=== PATIENT | male | born 1945 | race Caucasian/White ===

== ENCOUNTER → 2018-09-19 | Outpatient (CLI) | payer MEDICARE ==
[2018-09-19 17:10] LABS: Appearance,BF Cloudy; Color,BF Red
[2018-09-19 18:09] LABS: Nucleated Cells, Body Fluid 12100 /uL; RBC, Body Fluid 127100 /uL
[2018-09-19 18:10] LABS: Mononuclear WBC,Body Fluid 17 %; Polynuclear WBC,Body Fluid 83 %; Total Cells Counted,Body Fluid 100
== END | disposition home or self-care (01) ==
LOC: LABWHC1 16:30
PROVIDERS: ATTEND Orthopaedic Surgery
DX: M25.562 Pain in left knee (principal); M17.12 Unilateral primary osteoarthritis, left knee; E11.9 Type 2 diabetes mellitus without complications; M00.862 Arthritis due to other bacteria, left knee
CPT/HCPCS: 87070; 87075; 87205; 89050; 89060

== ENCOUNTER 2024-04-04 08:31 | Inpatient (IN) | payer MEDICARE ==
--- NOTE | 2024-04-04 08:44 | ED ---
General Adult HPI - General Chief complaint: Fall Stated complaint: Fall Time Seen by Provider: 04/04/24 08:32 Source: patient, EMS, RN notes reviewed Mode of arrival: EMS Limitations: no limitations - History of Present Illness Initial comments: Patient is a 78-year-old male presenting to the emergency department with right hip discomfort. Discomfort is only with attempted ambulation and standing. No pain at this time. Patient did have a fall around 130 or 2 in the morning. Patient denies any head injury or loss of consciousness. No neck or back pain. Patient only has discomfort of the right hip only with standing up and ambulation. - Related Data Home Medications Medication Instructions Recorded Confirmed Enalapril [Vasotec] 5 mg PO DAILY 08/12/18 08/12/18 Folic Acid 1 mg PO DAILY 08/12/18 08/12/18 Levothyroxine Sodium [Synthroid] 88 mcg PO DAILY 08/12/18 08/12/18 Sertraline [Zoloft] 150 mg PO DAILY 08/12/18 08/12/18 Simvastatin [Zocor] 10 mg PO DAILY 08/12/18 08/12/18 metFORMIN HCL [Glucophage] 1,000 mg PO BID 08/12/18 08/12/18 metHOTREXate sodium [Methotrexate] 22.5 mg PO Q7D 08/12/18 08/12/18 Previous Rx's Medication Instructions Recorded Acetaminophen Tab [Tylenol] 650 mg PO Q6HR PRN tab 08/18/18 INSULIN ASPART (NovoLOG) [NovoLOG 0 unit SQ ACHS vial 08/18/18 (formulary)] Insulin Detemir (Levemir) [Levemir] 5 unit SQ HS syr 08/18/18 Multivitamins, Thera [Multivitamin] 1 tab PO DAILY #30 tablet 08/18/18 Thiamine [Vitamin B-1] 100 mg PO DAILY #30 tablet 08/18/18 ceFAZolin [Kefzol] 2 gm IVPB Q8HR #72 08/18/18 polyethylene glycoL 3350 [Miralax] 17 gm PO DAILY PRN powd.pack 08/18/18 Allergies Allergy/AdvReac Type Severity Reaction Status Date / Time No Known Allergies Allergy Verified 04/04/24 08:39 Review of Systems ROS Statement: Those systems with pertinent positive or pertinent negative responses have been documented in the HPI. ROS Other: All systems not noted in ROS Statement are negative. Constitutional: Denies: fever Eyes: Denies: eye pain ENT: Denies: ear pain Respiratory: Denies: cough, dyspnea Cardiovascular: Denies: chest pain Musculoskeletal: Denies: back pain Neurological: Reports: other (Chronic weakness right arm from previous stroke). Denies: headache Past Medical History Past Medical History: Cancer, CVA/TIA, Diabetes Mellitus, Osteoarthritis (OA), Rheumatoid Arthritis (RA) Additional Past Medical History / Comment(s): per pt"testicular cancer had sx, radiation/chemo", past cva affected rt dominant side. rt arm contracted.pt stated was able to walk with cane but currently having difficulty bearing wt on lt knee d/t pain History of Any Multi-Drug Resistant Organisms: None Reported Past Surgical History: Adenoidectomy, Back Surgery, Hernia Repair, Tonsillectomy Additional Past Surgical History / Comment(s): lt testicle removed d/t cancer, cataracts pola, rt knee arthroscopy Past Anesthesia/Blood Transfusion Reactions: No Reported Reaction Past Psychological History: No Psychological Hx Reported Smoking Status: Light tobacco smoker Past Alcohol Use History: Occasional Past Drug Use History: Prescription Drug Abuse - Past Family History Father Additional Family Medical History / Comment(s): -etoh abuse Mother Family Medical History: Congestive Heart Failure (CHF), Osteoarthritis (OA) General Exam Limitations: no limitations General appearance: alert, in no apparent distress Head exam: Present: atraumatic Eye exam: Present: normal appearance Neck exam: Present: normal inspection. Absent: tenderness Respiratory exam: Present: normal lung sounds bilaterally Cardiovascular Exam: Present: regular rate, normal rhythm Expanded Peripheral pulses: 2+: Dorsalis Pedis (R) GI/Abdominal exam: Present: soft. Absent: tenderness Extremities exam: Present: full ROM, other (Distal right leg is neurovascularly intact. No significant tenderness on exam. No pain with range of motion.). Absent: tenderness Back exam: Present: normal inspection Neurological exam: Present: alert, other (Right arm contracted and weak) Psychiatric exam: Present: normal affect, normal mood Skin exam: Present: normal color Course Vital Signs 04/04/24 04/04/24 08:32 11:43 Temperature 98.3 F 98 F Pulse Rate 82 61 Respiratory 18 18 Rate Blood Pressure 123/71 125/70 O2 Sat by Pulse 94 L 98 Oximetry Medical Decision Making - Medical Decision Making Was pt. sent in by a medical professional or institution (SREEDHAR Rosenbaum, SENIOR PAINTER, urgent care, hospital, or half-way...) When possible be specific @ -No Did you speak to anyone other than the patient for history (EMS, parent, family, police, friend...)? What history was obtained from this source @ - is present and provides additional history that patient is unable to use walker at home. Did you review nursing and triage notes (agree or disagree)? Why? @ -I reviewed and agree with nursing and triage notes Were old charts reviewed (outside hosp., previous admission, EMS record, old EKG, old radiological studies, urgent care reports/EKG's, half-way records)? Report findings @ -No old charts were reviewed Differential Diagnosis (chest pain, altered mental status, abdominal pain women, abdominal pain men, vaginal bleeding, weakness, fever, dyspnea, syncope, headache, dizziness, GI bleed, back pain, seizure, CVA, palpatations, mental health, musculoskeletal)? @ -Differential Musculoskeletal Muscular strain, contusion, ligament sprain, fracture, arthritis, septic arthritis, bursitis, cellulitis, muscle spasm, nerve compression, DVT, arterial occlusion, herpes zoster, electrolyte abnormality, tumor.... This is not meant to be in all inclusive list EKG interpreted by me (3pts min.). @ -As above X-rays interpreted by me (1pt min.). @ -Right hip x-ray shows acetabular fracture CT interpreted by me (1pt min.). @ -CT scan right hip shows right acetabular fracture U/S interpreted by me (1pt. min.). @ -None done What testing was considered but not performed or refused? (CT, X-rays, U/S, la bs)? Why? @ -None What meds were considered but not given or refused? Why? @ -None Did you discuss the management of the patient with other professionals (professionals i.e. SREEDHAR Rosenbaum, SENIOR PAINTER, lab, RT, psych nurse, sexual assault social worker, research biostatistician, teacher, resident medical officer, disability case manager)? Give summary @ -Case was discussed with Dr. Astorga who states this is nonsurgical and patient could be discharged home however he is willing to admit if patient cannot be discharged. Was smoking cessation discussed for >3mins.? @ -No Was critical care preformed (if so, how long)? @ -No Were there social determinants of health that impacted care today? How? (Homelessness, low income, unemployed, alcoholism, drug addiction, transportation, low edu. Level, literacy, decrease access to med. care, correction, rehab)? @ -No Was there de-escalation of care discussed even if they declined (Discuss DNR or withdrawal of care, Hospice)? DNR status @ -Patient and family do not feel patient can be safely discharged home secondary to unable to use walker as well as right-sided weakness from previous stroke. What co-morbidities impacted this encounter? (DM, HTN, Smoking, COPD, CAD, Cancer, CVA, ARF, Chemo, Hep., AIDS, mental health diagnosis, sleep apnea, morbid obesity)? @ -History of stroke with right-sided weakness Was patient admitted / discharged? Hospital course, mention meds given and route, prescriptions, significant lab abnormalities, going to OR and other pertinent info. @ -Patient and family are updated on results and plan. Patient will be admitted with medical consult and social work and therapy. Patient will likely need placement or rehab. Undiagnosed new problem with uncertain prognosis? @ -No Drug Therapy requiring intensive monitoring for toxicity (Heparin, Nitro, Insulin, Cardizem)? @ -No Were any procedures done? @ -No Diagnosis/symptom? @ -Acetabular fracture Acute, or Chronic, or Acute on Chronic? @ -Acute Uncomplicated (without systemic symptoms) or Complicated (systemic symptoms)? @ -Default Side effects of treatment? @ -No Exacerbation, Progression, or Severe Exacerbation? @ -No Poses a threat to life or bodily function? How? (Chest pain, USA, PA, pneumonia, PE, COPD, DKA, ARF, appy, cholecystitis, CVA, Diverticulitis, Homicidal, Suicidal, threat to staff... and all critical care pts) @ -No Disposition Clinical Impression: Acetabular fracture Disposition: ADMITTED IP TO THIS HOSP Is patient prescribed a controlled substance at d/c from ED?: No Referrals: Bart Hoang MD [Primary Care Provider] - 1-2 days Time of Disposition: 11:58
--- NOTE | 2024-04-04 10:03 | XR ---
EXAMINATION TYPE: XR Hip RT and AP Pelvis DATE OF EXAM: 04/04/2024 8:51 AM CLINICAL INDICATION:Male, 78 years old with history of fall; COMPARISON: None. TECHNIQUE: XR Hip RT and AP Pelvis; hip was examined in the frontal and lateral projections and a AP pelvis. FINDINGS: There is an acute fracture which is poorly visualized on radiography aOsteophyte and better appreciated on CT formation of the superior acetabulum of the hip. There is mild joint space narrowi ng. IMPRESSION: 1. Acute intra-articular right pelvis fracture which is better characterized on CT. 2. Mild hip osteoarthrosis.
--- NOTE | 2024-04-04 10:07 | CT ---
EXAMINATION TYPE: CT hip RT wo con CT DLP: 384.1 mGycm, Automated exposure control for dose reduction was used. DATE OF EXAM: 04/04/2024 10:01 AM COMPARISON: . Extremity radiograph same day. CLINICAL INDICATION:Male, 78 years old with history of fall,pain; PHH, Fall, pain TECHNIQUE: Axial images were obtained of the CT hip RT wo con, Additional coronal and sagittal reform atted images and soft tissue and bone window were obtained for review. Contrast used: mL of , (None if empty) Oral contrast used: (None if empty) FINDINGS: Osseous demineralization limits evaluation. Acute intra-articular fracture of the left pelv is with intra-articular extension is minimal displacement up to 1 to 2 mm. Series 202 image 39. There is degeneration changes with osteophyte formation acetabulum and subchondral cystic change of the fe moral head. IMPRESSION: 1. Osseous demineralization limits evaluation. 2. Left acetabular fracture with intra-articular extension. 3. Femur appears intact.
[2024-04-04] MEDS ORDERED: IBUPROFEN 400 MG TAB PO PRN (11:59)
[2024-04-04] MEDS ORDERED: NALOXONE 0.4 MG/ML 1 ML VIAL IV PRN (11:59)
[2024-04-04] MEDS ORDERED: ACETAMINOPHEN TAB 325 MG TAB PO PRN (11:59)
[2024-04-04 12:56] LABS: Basophils % (A) 0 %; Eosinophils # (A) 0.1 k/uL (0-0.7); Eosinophils % (A) 1 %; HCT 36.9 % (39.0-53.0); HGB 12.2 gm/dL (13.0-17.5); Lymphocytes # (A) 0.6 k/uL (1.0-4.8); Lymphocytes % (A) 10 %; MCH 33.8 pg (25.0-35.0); MCV 102.5 fL (80.0-100.0); Macrocytosis Slight; Mean Platelet Volume 8.2; Monocytes # (A) 0.4 k/uL (0-1.0); Monocytes % (A) 7 %; Neutrophils % (A) 80 %; Platelet Count 221 k/uL (150-450); WBC 6.3 k/uL (3.8-10.6)
[2024-04-04 13:20] LABS: ALT 18 U/L (4-49); AST 21 U/L (17-59); African American GFR (CKD) >90 (>60 ml/min/1.73 sqM); Albumin 3.7 g/dL (3.5-5.0); Alkaline Phosphatase 60 U/L (38-126); Anion Gap 6 mmol/L; Blood Urea Nitrogen 9 mg/dL (9-20); Carbon Dioxide 25 mmol/L (22-30); Chloride 106 mmol/L (98-107); Glucose 134 mg/dL (74-99); Non-African American GFR(CKD) >90 (>60 ml/min/1.73 sqM); Potassium 4.2 mmol/L (3.5-5.1); Sodium 137 mmol/L (137-145); Total Bilirubin 0.8 mg/dL (0.2-1.3); Total Protein 6.4 g/dL (6.3-8.2)
[2024-04-04 16:37] LABS: Glucose,Whole Blood 137 mg/dL (70-110)
--- NOTE | 2024-04-05 00:13 | P.CONS ---
History of Present Illness - Reason for Consult Consult date: 04/04/24 Medical management - Chief Complaint Fall - History of Present Illness Patient is a 78-year-old male with a past medical history of CVA with right- sided weakness/right arm contracted, lumbar arthritis, diabetes type 2, osteoarthritis, history of testicular cancer status post surgery and history of prescription drug abuse presents to ER status post fall. Patient apparently fell towards his right side and landed on his right hip around 1:30 AM in the morning. Since then patient has been having discomfort when attempted to ambulate or standing up. Patient has history of CVA with residual right-sided weakness. Denies any head injury or loss of consciousness. No complaints of neck pain or back pain. Denies any numbness or tingling sensation in the lower extremities. Denies any recent illnesses. No cough or sputum production. No chest pain or shortness of breath. Denies any dizziness or lightheadedness prior to fall. Hip pain pelvis x-ray showed acute intra-articular right pelvis fracture. Mild hip osteoarthrosis CT right hip showed osseous deep manipulation limits evaluation. Left acetabular fracture with intra-articular extension. Femur appears intact. Laboratory data showed WBC 6.3 hemoglobin 12.2 MCV 102.5 and platelets 221 Sodium 137 potassium 4.2 chloride 106 bicarb is 25 BUN 9 and creatinine 0.53 and blood sugar is 134 and liver radiographs are not elevated. Review of Systems Constitutional: Patient denies any fever or chills . No generalized weakness or weight loss. Abdomen: Patient denied nausea vomiting and diarrhea and abdominal pain. Cardiovascular: Patient denies any chest pain or short of breath no palpitations. Respiratory: patient denied any cough is from production. No shortness of breath Neurologic: Patient denied any numbness or tingling headache. Musculoskeletal: Patient denies any complaints of joint swelling or deformity. Skin: Negative Psychiatric: Negative Endocrine: No heat or cold intolerance. No recent weight gain. Genitourinary: No dysuria or hematuria. All other 14 point ROS negative except the above Past Medical History Past Medical History: Cancer, CVA/TIA, Diabetes Mellitus, Osteoarthritis (OA), Rheumatoid Arthritis (RA) Additional Past Medical History / Comment(s): per pt"testicular cancer had sx, radiation/chemo", past cva affected rt dominant side. rt arm contracted.pt stated was able to walk with cane but currently having difficulty bearing wt on lt knee d/t pain History of Any Multi-Drug Resistant Organisms: None Reported Past Surgical History: Adenoidectomy, Back Surgery, Hernia Repair, Tonsillectomy Additional Past Surgical History / Comment(s): lt testicle removed d/t cancer, cataracts pola, rt knee arthroscopy Past Anesthesia/Blood Transfusion Reactions: No Reported Reaction Past Psychological History: No Psychological Hx Reported Smoking Status: Light tobacco smoker Past Alcohol Use History: Occasional Past Drug Use History: Prescription Drug Abuse - Past Family History Father Additional Family Medical History / Comment(s): -etoh abuse Mother Family Medical History: Congestive Heart Failure (CHF), Osteoarthritis (OA) Medications and Allergies Home Medications Medication Instructions Recorded Confirmed Type Enalapril [Vasotec] 5 mg PO DAILY 08/12/18 04/04/24 History Levothyroxine Sodium [Synthroid] 88 mcg PO DAILY 08/12/18 04/04/24 History Sertraline [Zoloft] 100 mg PO DAILY 08/12/18 04/04/24 History Simvastatin [Zocor] 10 mg PO DAILY 08/12/18 04/04/24 History metFORMIN HCL [Glucophage] 1,000 mg PO DAILY 08/12/18 04/04/24 History Aspirin EC [Ecotrin Low Dose] 81 mg PO DAILY 04/04/24 04/04/24 History Etanercept [Enbrel Sureclick] 50 mg SQ WE 04/04/24 04/04/24 History Ferrous Sulfate [Feosol] 325 mg PO DAILY 04/04/24 04/04/24 History Tamsulosin [Flomax] 0.4 mg PO DAILY 04/04/24 04/04/24 History fentaNYL 50MCG/HR PATCH [Duragesic 1 patch TRANSDERM Q72H 04/04/24 04/04/24 History 50MCG/HR] Allergies Allergy/AdvReac Type Severity Reaction Status Date / Time No Known Allergies Allergy Verified 04/04/24 13:12 Physical Exam Vitals: Vital Signs Temp Pulse Resp BP Pulse Ox 04/04/24 14:40 98.1 F 66 17 126/60 97 04/04/24 13:43 98.2 F 68 20 122/68 97 04/04/24 11:43 98 F 61 18 125/70 98 04/04/24 08:32 98.3 F 82 18 123/71 94 L Intake and Output 04/03/24 04/04/24 04/04/24 22:59 06:59 14:59 Other: Weight 65.771 kg PHYSICAL EXAMINATION: Patient is lying in the bed comfortably, no acute distress, awake alert and oriented.. HEENT: Normocephalic. Neck is supple. Pupils reactive. Nostrils clear. Oral cavity is moist. Neck reveals no JVD, carotid bruits, or thyromegaly. CHEST EXAMINATION: Trachea is central. Symmetrical expansion. Lung forde clear to auscultation and percussion. CARDIAC: Normal S1, S2 with no gallops. No murmurs ABDOMEN: Soft. Bowel sounds normal. No organomegaly. No abdominal bruits. Extremities: reveal no edema. No clubbing or cyanosis Neurologically awake, alert, oriented x3 right-sided weakness and right upper extremity contractures. Skin: No rash or skin lesions. Psychiatric: Coperative. Nonsuicidal Musculoskeletal: No joint swelling or deformity. Normal range of motion. Results CBC & Chem 7: 04/04/24 12:24 04/04/24 12:24 Labs: Abnormal Lab Results - Last 24 Hours (Table) 04/04/24 04/04/24 Range/Units 12:24 12:24 RBC 3.60 L (4.30-5.90) m/uL Hgb 12.2 L (13.0-17.5) gm/dL Hct 36.9 L (39.0-53.0) % MCV 102.5 H (80.0-100.0) fL Lymphocytes # 0.6 L (1.0-4.8) k/uL Creatinine 0.53 L (0.66-1.25) mg/dL Glucose 134 H (74-99) mg/dL Assessment and Plan Assessment: Left acetabular fracture with intra-articular extension s/p mechanical fall. History of CVA with right-sided weakness and right upper extremity contractures. Rheumatoid arthritis with arthritic changes Diabetes type 2 [id number] Hypertension Hypothyroidism History of testicular cancer status post chemoradiation Light tobacco smoker DVT prophylaxis as per primary team. Plan: Patient will be continued on pain management, bowel regimen and encourage incentive spirometry. Patient will be continued on home medications including levothyroxine and metformin. Start back on aspirin if no surgical intervention from orthopedic standpoint. PT OT will be consulted. Patient may need rehab transfer.
[2024-04-05] MEDS: LEVOTHYROXINE 88 MCG TAB PO SCH (05:54)
--- NOTE | 2024-04-05 08:38 | P.HPOR ---
History of Present Illness H&P Date: 04/05/24 The patient is a very pleasant 78-year-old male with a medical history significant for having a prior stroke with residual right-sided weakness who sustained a ground-level fall when he woke up to go to the bathroom the other night. He initially had pain in the right hip was able to ambulate. Due to increasing pain in the hip he presented to the emergency department. Initial x- rays in the emergency department were read as normal and a CAT scan of the right hip showed a minimally displaced acetabular fracture. Due to the patient's residual right-sided weakness and age he was admitted under my care for therapy and possible discharge planning. This morning at the time of my evaluation the Patient is complaining of minimal pain in the right hip. He denies any other injuries or areas of pain. He denies antecedent right hip pain. At baseline he lives at home with his and ambulates without assistance. Past Medical History Past Medical History: Cancer, CVA/TIA, Diabetes Mellitus, Osteoarthritis (OA), Rheumatoid Arthritis (RA) Additional Past Medical History / Comment(s): per pt"testicular cancer had sx, radiation/chemo", past cva affected rt dominant side. rt arm contracted.pt stated was able to walk with cane but currently having difficulty bearing wt on lt knee d/t pain History of Any Multi-Drug Resistant Organisms: None Reported Past Surgical History: Adenoidectomy, Back Surgery, Hernia Repair, Tonsillectomy Additional Past Surgical History / Comment(s): lt testicle removed d/t cancer, cataracts pola, rt knee arthroscopy Past Anesthesia/Blood Transfusion Reactions: No Reported Reaction Past Psychological History: No Psychological Hx Reported Smoking Status: Light tobacco smoker Past Alcohol Use History: Occasional Past Drug Use History: Prescription Drug Abuse - Past Family History Father Additional Family Medical History / Comment(s): -etoh abuse Mother Family Medical History: Congestive Heart Failure (CHF), Osteoarthritis (OA) Medications and Allergies Home Medications Medication Instructions Recorded Confirmed Type Enalapril [Vasotec] 5 mg PO DAILY 08/12/18 04/04/24 History Levothyroxine Sodium [Synthroid] 88 mcg PO DAILY 08/12/18 04/04/24 History Sertraline [Zoloft] 100 mg PO DAILY 08/12/18 04/04/24 History Simvastatin [Zocor] 10 mg PO DAILY 08/12/18 04/04/24 History metFORMIN HCL [Glucophage] 1,000 mg PO DAILY 08/12/18 04/04/24 History Aspirin EC [Ecotrin Low Dose] 81 mg PO DAILY 04/04/24 04/04/24 History Etanercept [Enbrel Sureclick] 50 mg SQ WE 04/04/24 04/04/24 History Ferrous Sulfate [Feosol] 325 mg PO DAILY 04/04/24 04/04/24 History Tamsulosin [Flomax] 0.4 mg PO DAILY 04/04/24 04/04/24 History fentaNYL 50MCG/HR PATCH [Duragesic 1 patch TRANSDERM Q72H 04/04/24 04/04/24 History 50MCG/HR] Allergies Allergy/AdvReac Type Severity Reaction Status Date / Time No Known Allergies Allergy Verified 04/04/24 13:12 Physical Examination the patient is resting comfortably in his bed. He is alert and able to answer questions. His head is normocephalic and atraumatic. He demonstrates nonlabored breathing with symmetric chest expansion. His abdomen is nonobese and nontender. He has palpable peripheral pulses. Bilateral upper extremities and left lower extremities are without deformity. A focused exam of the right lower extremity was conducted. On inspection there are no obvious deformities the right hip. The patient is able to perform a straight leg raise. He has minimal to no pain with passive range of motion of the right hip. He has no tenderness throughout the right lower extremity. Sensation is intact to light touch throughout the right leg. He is able to actively plantarflex and dorsiflex his ankle and his toes. Results x-rays and computed tomography scan of the right hip show a minimally displaced intra-articular right sided acetabular fracture. There is also diffuse osteopenia and moderate arthritic changes in the right hip. There is calcification noted in the vasculature. - Labs Labs: Abnormal Lab Results - Last 24 Hours (Table) 04/04/24 04/04/24 04/04/24 Range/Units 12:24 12:24 16:33 RBC 3.60 L (4.30-5.90) m/uL Hgb 12.2 L (13.0-17.5) gm/dL Hct 36.9 L (39.0-53.0) % MCV 102.5 H (80.0-100.0) fL Lymphocytes # 0.6 L (1.0-4.8) k/uL Creatinine 0.53 L (0.66-1.25) mg/dL Glucose 134 H (74-99) mg/dL POC Glucose (mg/dL) 137 H (70-110) mg/dL H & H 04/04/24 Range/Units 12:24 Hgb 12.2 L (13.0-17.5) gm/dL Hct 36.9 L (39.0-53.0) % Result Diagrams: 04/04/24 12:24 04/04/24 12:24 Assessment and Plan Assessment: closed right minimally displaced acetabular fracture with intra-articular extension Osteopenia Pre-existing right hip osteoarthritis Prior stroke with residual right-sided weakness Plan: I met with the patient this morning and reviewed his imaging finding. Due to the patient's advanced age, multiple medical problems, minimal displacement on x-ray and computed tomography scan and the fact that he was able to ambulate following his fall my recommendation is to treat his fracture nonsurgically with protected weightbearing and serial x-rays. The patient can toe-touch weight- bear on the right side. I recommended mobilization out of bed into a chair today. Physical therapy has been consulted for gait training. Internal medicine has seen and evaluated the patient and will manage his medical issues. Social work and care management is also been consulted for discharge planning. If the patient does well with physical therapy and is able to safely ambulate with a walker while maintaining toe-touch weightbearing precautions he can discharge home. If the patient needs discharge to rehab plan for that will be giselene tomorrow. Time with Patient: Greater than 30
[2024-04-05 09:31] LABS: Basophils # (A) 0.03 X 10*3/uL (0.00-0.10); Basophils % (A) 0.6 %; Eosinophils # (A) 0.09 X 10*3/uL (0.04-0.35); Eosinophils % (A) 1.8 %; HCT 33.3 % (39.6-50.0); HGB 11.2 g/dL (13.0-17.0); Lymphocytes # (A) 0.94 X 10*3/uL (0.90-5.00); MCH 33.4 pg (27.0-32.0); MCHC 33.6 g/dL (32.0-37.0); MCV 99.4 FL (80.0-97.0); Mean Platelet Volume 10.2 FL (9.5-12.2); Monocytes # (A) 0.86 X 10*3/uL (0.20-1.00); Monocytes % (A) 17.4 %; NRBC Per 100 WBC 0 X 10*3/uL (0.00-0.01); Neutrophils # (A) 3.01 X 10*3/uL (1.80-7.70); Neutrophils % (A) 60.8 %; Platelet Count 189 X 10*3/uL (140-440); RBC 3.35 X 10*6/uL (4.40-5.60); RDW 14.5 % (11.5-14.5); WBC 4.95 X 10*3/uL (4.50-10.00)
[2024-04-05 10:05] LABS: Blood Urea Nitrogen 7.2 mg/dL (9.0-27.0); Carbon Dioxide 23.5 mmol/L (21.6-31.8); Chloride 104 mmol/L (96-109); Glucose 119 mg/dL (70-110); Potassium 4.3 mmol/L (3.5-5.5); Sodium 139 mmol/L (135-145)
[2024-04-05] MEDS: TAMSULOSIN 0.4 MG CAP.ER.24H PO SCH (10:14)
[2024-04-05] MEDS: lisinopriL 10 MG TAB PO SCH (10:14)
[2024-04-05] MEDS: metFORMIN 500 MG TAB PO SCH (10:14)
[2024-04-05] MEDS: SERTRALINE 100 MG TAB PO SCH (10:14)
[2024-04-05] MEDS: traMADol 50 MG TAB PO PRN (10:14)
[2024-04-05] MEDS: ATORVASTATIN 10 MG TAB PO SCH (10:15)
[2024-04-05 11:22] LABS: Glucose,Whole Blood 129 mg/dL (70-110)
[2024-04-05 16:43] LABS: Glucose,Whole Blood 125 mg/dL (70-110)
[2024-04-05] MEDS: CYANOCOBALAMIN 1,000 MCG/ML 1 ML VIAL IM ONE (21:58)
[2024-04-05 22:38] LABS: Glucose,Whole Blood 136 mg/dL (70-110)
[2024-04-06] MEDS: HEPARIN SODIUM,PORCINE 5,000 UNIT/ML 1 ML VIAL SQ SCH (00:42)
[2024-04-06 06:24] LABS: Glucose,Whole Blood 130 mg/dL (70-110)
[2024-04-06] MEDS: CYANOCOBALAMIN 500 MCG TAB PO SCH (08:14)
[2024-04-06] MEDS: ASPIRIN 81 MG PO SCH (08:14)
--- NOTE | 2024-04-06 09:04 | P.PN ---
Subjective Progress Note Date: 04/06/24 This is a 78-year-old male who is being followed for a right minimally displaced acetabular fracture. Patient's past medical history is significant for a stroke with right-sided weakness, diabetes mellitus and rheumatoid arthritis. Patient is seen and evaluated at bedside today and states that his pain is very well- controlled and he has been working with physical therapy. Patient states that he has been keeping weight off of the right leg and plans to go to inpatient rehab. Patient denies any new complaints today. Objective - Vital Signs Vital signs: Vital Signs Temp 98.2 F 04/06/24 01:54 Pulse 73 04/06/24 01:54 Resp 17 04/06/24 01:54 BP 102/45 04/06/24 01:54 Pulse Ox 92 L 04/06/24 01:54 FiO2 Intake & Output 04/05/24 04/06/24 04/06/24 18:59 06:59 18:59 Output Total 250 Balance -250 Output: Urine 250 Other: Voiding Method Urinal # Voids 2 - Exam On exam patient is resting comfortably in bed in no acute distress. Patient is alert and oriented 3. There is no significant swelling. Calf is soft and nontender to palpation. Sensation intact. Neurovascular status and circulatory status are intact. - Labs CBC & Chem 7: 04/05/24 05:07 04/05/24 05:07 Labs: Abnormal Lab Results - Last 24 Hours (Table) 04/05/24 04/05/24 04/05/24 Range/Units 05:07 05:07 11:20 RBC 3.35 L (4.40-5.60) X 10*6/uL Hgb 11.2 L (13.0-17.0) g/dL Hct 33.3 L (39.6-50.0) % MCV 99.4 H (80.0-97.0) FL MCH 33.4 H (27.0-32.0) pg BUN 7.2 L (9.0-27.0) mg/dL Glucose 119 H (70-110) mg/dL POC Glucose (mg/dL) 129 H (70-110) mg/dL Vitamin B12 161.0 L (200.0-944.0) pg/mL 04/05/24 04/05/24 04/06/24 Range/Units 16:41 22:34 06:21 RBC (4.40-5.60) X 10*6/uL Hgb (13.0-17.0) g/dL Hct (39.6-50.0) % MCV (80.0-97.0) FL MCH (27.0-32.0) pg BUN (9.0-27.0) mg/dL Glucose (70-110) mg/dL POC Glucose (mg/dL) 125 H 136 H 130 H (70-110) mg/dL Vitamin B12 (200.0-944.0) pg/mL Assessment and Plan (1) Acetabular fracture Current Visit: Yes Status: Acute Code(s): S32.409A - UNSP FRACTURE OF UNSP ACETABULUM, INIT FOR CLOS FX SNOMED Code(s): 37257565 Plan: 1. Toe-touch weightbearing to the right lower extremity with a walker. Continue pain control. 2. There is no surgical intervention planned. Patient is awaiting authorization for inpatient rehab.
[2024-04-06 11:59] LABS: Glucose,Whole Blood 118 mg/dL (70-110)
[2024-04-06 16:40] LABS: Glucose,Whole Blood 138 mg/dL (70-110)
[2024-04-06 20:30] LABS: Glucose,Whole Blood 134 mg/dL (70-110)
[2024-04-07 06:16] LABS: Glucose,Whole Blood 139 mg/dL (70-110)
--- NOTE | 2024-04-07 09:56 | P.PN ---
Subjective Progress Note Date: 04/07/24 This is a 78-year-old male who is being followed for a right minimally displaced acetabular fracture. Patient's past medical history is significant for a stroke with right-sided weakness, diabetes mellitus and rheumatoid arthritis. Patient is seen and evaluated at bedside today and states that his pain is very well- controlled and he has been working with physical therapy. Patient states that he has been keeping weight off of the right leg and now plans to discharge home with home care. Patient denies any new complaints today. Objective - Vital Signs Vital signs: Vital Signs Temp 99.2 F 04/07/24 07:23 Pulse 94 04/07/24 07:23 Resp 16 04/07/24 07:23 BP 129/72 04/07/24 07:23 Pulse Ox 93 L 04/07/24 07:23 FiO2 Intake & Output 04/06/24 04/07/24 04/07/24 18:59 06:59 18:59 Intake Total 712 Output Total 100 200 Balance 612 -200 Intake: Oral 712 Output: Urine 100 200 Other: # Voids 1 - Exam On exam patient is resting comfortably in bed in no acute distress. Patient is alert and oriented 3. There is no significant swelling. Calf is soft and nontender to palpation. Sensation intact. Neurovascular status and circulatory status are intact. - Labs CBC & Chem 7: 04/05/24 05:07 04/05/24 05:07 Labs: Abnormal Lab Results - Last 24 Hours (Table) 04/06/24 04/06/24 04/06/24 Range/Units 11:57 16:38 20:28 POC Glucose (mg/dL) 118 H 138 H 134 H (70-110) mg/dL 04/07/24 Range/Units 06:11 POC Glucose (mg/dL) 139 H (70-110) mg/dL Assessment and Plan (1) Acetabular fracture Current Visit: Yes Status: Acute Code(s): S32.409A - UNSP FRACTURE OF UNSP ACETABULUM, INIT FOR CLOS FX SNOMED Code(s): 15803989 Plan: 1. Toe-touch weightbearing to the right lower extremity with a walker. Continue pain control. 2. There is no surgical intervention planned. Patient is planning to discharge home. Cleared for discharge from an orthopedic standpoint.
[2024-04-07 11:29] LABS: Glucose,Whole Blood 132 mg/dL (70-110)
--- NOTE | 2024-04-07 12:15 | P.DS ---
Providers Date of admission: 04/06/24 11:39 Attending physician: Jose C Astorga Consults: 04/04/24 11:59 Consult Physician Routine Consulting Provider: Melyssa Fraga Consult Reason/Comments: medical care Do you want consulting provider notified?: Yes Primary care physician: Bart Juarezvi - Discharge Diagnosis(es) (1) Acetabular fracture Current Visit: Yes Status: Acute Hospital Course: 04/07/2024: This is a 78-year-old male who was admitted after a ground-level fall for management of a minimally displaced acetabular fracture. The patient was evaluated in the emergency room where x-rays and a CT scan were done revealing minimally displaced acetabular fracture. Patient has a history of prior stroke with right-sided weakness and was admitted for physical therapy evaluation and discharge planning. During the course of his hospital stay the patient has been working with physical therapy and his pain has been well-controlled. The patient plans to discharge home with home care. The patient has the support of his at home and they prefer discharge home rather than inpatient rehab. Labs and vital signs are stable on day of discharge. On day of discharge patient is resting comfortably in bed in no acute distress. Patient is alert and oriented 3. There is no significant swelling. Calf is soft and nontender to palpation. Sensation intact. Neurovascular status and circulatory status are intact. Patient is discharged home in good condition. Please see med rec for an accurate list of home medications. Patient plans to resume his fentanyl patch at home for pain management. Plan - Discharge Summary Discharge Rx Participant: No New Discharge Prescriptions: No Action metFORMIN HCL [Glucophage] 1,000 mg PO DAILY Simvastatin [Zocor] 10 mg PO DAILY Levothyroxine Sodium [Synthroid] 88 mcg PO DAILY Enalapril [Vasotec] 5 mg PO DAILY Sertraline [Zoloft] 100 mg PO DAILY Ferrous Sulfate [Feosol] 325 mg PO DAILY Aspirin EC [Ecotrin Low Dose] 81 mg PO DAILY Etanercept [Enbrel Sureclick] 50 mg SQ WE fentaNYL 50MCG/HR PATCH [Duragesic 50MCG/HR] 1 patch TRANSDERM Q72H Tamsulosin [Flomax] 0.4 mg PO DAILY Discharge Medication List Enalapril [Vasotec] 5 mg PO DAILY 08/12/18 [History] Levothyroxine Sodium [Synthroid] 88 mcg PO DAILY 08/12/18 [History] Sertraline [Zoloft] 100 mg PO DAILY 08/12/18 [History] Simvastatin [Zocor] 10 mg PO DAILY 08/12/18 [History] metFORMIN HCL [Glucophage] 1,000 mg PO DAILY 08/12/18 [History] Aspirin EC [Ecotrin Low Dose] 81 mg PO DAILY 04/04/24 [History] Etanercept [Enbrel Sureclick] 50 mg SQ WE 04/04/24 [History] Ferrous Sulfate [Feosol] 325 mg PO DAILY 04/04/24 [History] Tamsulosin [Flomax] 0.4 mg PO DAILY 04/04/24 [History] fentaNYL 50MCG/HR PATCH [Duragesic 50MCG/HR] 1 patch TRANSDERM Q72H 04/04/24 [History] Follow up Appointment(s)/Referral(s): Bart Hoang MD [Primary Care Provider] - 1-2 days Jos eC Astorga MD [Medical Doctor] - 04/16/24 2:15 pm Activity/Diet/Wound Care/Special Instructions: Toe-touch weightbearing to the right lower extremity. [facility] and call with any questions or concerns, . Patient requires a bedside commode because he is room confined due to a right acetabular fracture. Discharge/Stand Alone Forms: [facility] Home Discharge Disposition: HOME WITH HOME HEALTH SERVICES
[2024-04-07 14:27] VITALS: BP 109/62; PULSE 90; RESP 17; TEMP 97.8
== END 2024-04-07 14:40 | disposition home health service (06) | DRG 536 ==
LOC: EC 08:31 → 4SSUR 11:59 → OBSVTOIN 04-06 11:39
PROVIDERS: ADMIT Orthopaedic Surgery; ATTEND Orthopaedic Surgery
DX: S32.492A Other specified fracture of left acetabulum, initial encounter for closed fracture (principal); S32.491A Other specified fracture of right acetabulum, initial encounter for closed fracture; E11.9 Type 2 diabetes mellitus without complications; F19.11 Other psychoactive substance abuse, in remission; M06.80 Other specified rheumatoid arthritis, unspecified site; Z79.4 Long term (current) use of insulin; I69.331 Monoplegia of upper limb following cerebral infarction affecting right dominant side; E03.9 Hypothyroidism, unspecified; I10 Essential (primary) hypertension; F17.210 Nicotine dependence, cigarettes, uncomplicated; M47.816 Spondylosis without myelopathy or radiculopathy, lumbar region; M85.851 Other specified disorders of bone density and structure, right thigh; M24.541 Contracture, right hand; M16.11 Unilateral primary osteoarthritis, right hip; W18.30XA Fall on same level, unspecified, initial encounter; Y92.009 Unspecified place in unspecified non-institutional (private) residence as the place of occurrence of the external cause; Z79.84 Long term (current) use of oral hypoglycemic drugs; Z79.890 Hormone replacement therapy; Z79.82 Long term (current) use of aspirin; Z79.899 Other long term (current) drug therapy; Z92.21 Personal history of antineoplastic chemotherapy; Z92.3 Personal history of irradiation; Z85.47 Personal history of malignant neoplasm of testis; Z90.79 Acquired absence of other genital organ(s)
CPT/HCPCS: 73502; 80048; 80053; 82607; 82747; 85025; 99285